=== PATIENT | male | born 2000 | race Caucasian/White ===

== ENCOUNTER 2019-01-12 23:04 | Emergency (ER) | payer OTHER ==
[~2019-01-12] VITALS: Ht 170.2 cm; Wt 56.4 kg
[~2019-01-12 23:04] MED LIST: CYCL10TA7 PO; NAPR-985 PO
[2019-01-12 23:08] VITALS: BP 132/68; PULSE 72; RESP 16; Ht 170.2 cm; Wt 56.4 kg
== END 2019-01-13 00:56 | disposition home or self-care (01) ==
LOC: FTE 23:04
DX: M54.5 Low back pain (principal)
CPT/HCPCS: 81003; 87086; 99283